=== PATIENT | male | born 1960 | race American Indian/Alaskan Native ===

== ENCOUNTER 2016-08-07 10:05 | Emergency (ER) | payer MEDICARE ==
[2016-08-07 11:48] VITALS: BP 189/72
--- NOTE | 2016-08-07 12:09 | Emergency Department Report ---
HPI - General Chief Complaint: Wound/Laceration Time Seen by Provider: 08/07/16 10:26 - HPI HPI: This is a 56-year-old Afro-L[place] male presents to the emergency department after hemodialysis with complaint of uncontrolled bleeding from his right upper extremity dialysis graft. He says that he believes that they make too large a hole when they gain access as this has happened multiple times in the past. He denies any pain. The patient did complete dialysis today. He denies any chest pain, shortness of breath or any other complaints. His hyperbaric technician is Dr. Hearn. He is a history of diabetes, GERD, hypertension and this end-stage renal disease. ED Past Medical Hx - Past Medical History Hx Hypertension: Yes Hx Diabetes: Yes (DOES NOT TAKE MEDS) Hx GERD: Yes Hx Renal Disease: Yes (ESRD on HD) Hx Arthritis: Yes Hx Asthma: No - Surgical History Past Surgical History?: Yes Additional Surgical History: grafts BUE, bleeding ulcers - Social History Smoking Status: Never Smoker Substance Use Type: None - Medications Home Medications: Home Medications Medication Instructions Recorded Confirmed Last Taken Type Carvedilol 25 mg PO BID 05/06/13 03/18/15 03/17/15 History 25mg Cimetidine 400 mg PO BID 05/06/13 03/18/15 03/17/15 History 400mg Cinacalcet [Sensipar] 30 mg PO Q48HR 05/06/13 03/18/15 03/17/15 History 30mg NIFEdipine [Nifedipine ER] 60 mg PO DAILY 05/06/13 03/18/15 03/17/15 History 60mg Omeprazole 40 mg PO BID 05/06/13 03/18/15 03/17/15 History 40mg Sevelamer Carbonate [Renvela] 2,400 mg PO TID 05/06/13 03/18/15 03/17/15 History 2400mg Terazosin [Hytrin] 5 mg PO DAILY 05/06/13 03/18/15 03/17/15 History 5mg Cyanocobalamin (Vitamin B-12) 2,000 mcg PO DAILY 07/15/13 03/18/15 03/17/15 History [Vitamin B-12] [place] [place] of Systems ROS: Stated complaint: BLEEDING FROM DIALYSIS Other details as noted in HPI Comment: All other systems reviewed and negative Constitutional: denies: chills, fever Eyes: denies: eye pain, eye discharge, vision change ENT: denies: ear pain, throat pain Respiratory: denies: cough, shortness of breath, wheezing Cardiovascular: denies: chest pain, palpitations Gastrointestinal: denies: abdominal pain, nausea, diarrhea Genitourinary: denies: urgency, dysuria Musculoskeletal: denies: back pain, joint swelling, arthralgia Skin: denies: rash, lesions Neurological: denies: headache, weakness, paresthesias Physical Exam - Physical Exam Vital Signs: Vital Signs 08/07/16 08/07/16 08/07/16 10:17 10:32 10:35 Respiratory 18 Rate Blood Pressure 191/77 189/74 O2 Sat by Pulse 98 Oximetry 08/07/16 08/07/16 08/07/16 10:45 11:00 11:15 Respiratory Rate Blood Pressure 183/79 178/69 189/72 O2 Sat by Pulse Oximetry Physical Exam: GENERAL: The patient is well-developed well-nourished. HEENT: Normocephalic. Atraumatic. Extraocular motions are intact. Patient has moist mucous membranes. NECK: Supple. Trachea is midline. CHEST/LUNGS: Clear to auscultation. There is no respiratory distress noted. HEART/CARDIOVASCULAR: Regular. There is no tachycardia. There is no gallop rub or murmur. ABDOMEN: Abdomen is soft, nontender. Patient has normal bowel sounds. There is no abdominal distention. SKIN: There is a patent right upper extremity dialysis graft. When the dressing is removed there is no bleeding at first but then there is some oozing from the distal portion of the graft. NEURO: The patient is awake, alert, and oriented. The patient is cooperative. The patient has no focal neurologic deficits. The patient has normal speech. MUSCULOSKELETAL: There is no tenderness or deformity. There is no limitation range of motion. There is no evidence of acute injury. Radial pulses +2 over 4 bilaterally. Patent right upper extremity dialysis graft with a palpable thrill and audible hum. ED Course Vital Signs 08/07/16 08/07/16 08/07/16 10:17 10:32 10:35 Respiratory 18 Rate Blood Pressure 191/77 189/74 O2 Sat by Pulse 98 Oximetry 08/07/16 08/07/16 08/07/16 10:45 11:00 11:15 Respiratory Rate Blood Pressure 183/79 178/69 189/72 O2 Sat by Pulse Oximetry ED Medical Decision Making - Medical Decision Making 56-year-old male presents after dialysis with bleeding from the right upper extremity graft. At first when the dressings were removed there was no bleeding but within 1 minute it started to have some oozing from the distal portion of the graft. A different pressure dressing was then placed and was kept there for about 1.5 hours. At this point it was rechecked and the dressing was removed and there was no further bleeding and it appears to have clotted over. A small amount of Dermabond was used to provide a another protective coating over the area where the patient had some mild bleeding. Then a nonadhesive dressing was placed over, followed by sterile gauze, followed by [place] bandage. The patient will remain in this dressing until later tonight or early tomorrow and then it will be rechecked by himself at home. If there is any further bleeding he will return to the emergency department. If there is no further bleeding that he will continue with his normal dialysis regimen. I checked the patient again after the dressing and he is neurovascularly intact with good cap refill and distal pulses. Critical Care Time: No Critical care attestation.: If time is entered above; I have spent that time in minutes in the direct care of this critically ill patient, excluding procedure time. ED Disposition Clinical Impression: Bleeding from dialysis shunt Qualifiers: Encounter type: initial encounter Qualified Code(s): T82.838A - Hemorrhage due to vascular prosthetic devices, implants and grafts, initial encounter Disposition: DISCHARGED TO HOME OR SELFCARE Is pt being admited?: No Condition: Stable Additional Instructions: I recommend that you keep your dressing on until at least tonight, if not tomorrow morning, before you recheck it. If there is any further bleeding and it cannot be controlled with pressure, return to the emergency department for further evaluation. If there is no further bleeding, continue with your normal dialysis regiment. Referrals: PRIMARY CARE, [Primary Care Provider] - 3-5 Days Time of Disposition: 12:10
== END 2016-08-07 12:30 | disposition home or self-care (01) ==
LOC: ED 10:05
DX: T82.838A Hemorrhage due to vascular prosthetic devices, implants and grafts, initial encounter (principal); E11.9 Type 2 diabetes mellitus without complications; K21.9 Gastro-esophageal reflux disease without esophagitis; I12.0 Hypertensive chronic kidney disease with stage 5 chronic kidney disease or end stage renal disease; N18.6 End stage renal disease
CPT/HCPCS: 99283

== ENCOUNTER 2016-09-20 15:00 | Inpatient (IN) | payer MEDICARE ==
--- NOTE | 2016-09-20 15:57 | Emergency Department Report ---
ED Altered Mental Status HPI - General Chief Complaint: Altered Mental Status Stated Complaint: AMS Time Seen by Provider: 09/20/16 15:46 Source: EMS Mode of arrival: Stretcher Limitations: Altered Mental Status - History of Present Illness MD Complaint: altered mental status -: days(s) (3) Severity: severe Consistency of Symptoms: getting worse Context: other (end-stage renal disease on dialysis) Associated Symptoms: fever/chills - Related Data Home Medications Medication Instructions Recorded Confirmed Last Taken Carvedilol 25 mg PO BID 05/06/13 03/18/15 03/17/15 25mg Cimetidine 400 mg PO BID 05/06/13 03/18/15 03/17/15 400mg Cinacalcet [Sensipar] 30 mg PO Q48HR 05/06/13 03/18/15 03/17/15 30mg NIFEdipine [Nifedipine ER] 60 mg PO DAILY 05/06/13 03/18/15 03/17/15 60mg Omeprazole 40 mg PO BID 05/06/13 03/18/15 03/17/15 40mg Sevelamer Carbonate [Renvela] 2,400 mg PO TID 05/06/13 03/18/15 03/17/15 2400mg Terazosin [Hytrin] 5 mg PO DAILY 05/06/13 03/18/15 03/17/15 5mg Cyanocobalamin (Vitamin B-12) 2,000 mcg PO DAILY 07/15/13 03/18/15 03/17/15 [Vitamin B-12] 2000mcg Allergies Allergy/AdvReac Type Severity Reaction Status Date / Time shellfish derived Allergy Swelling Verified 11/19/15 11:13 ED Review of Systems ROS: Stated complaint: AMS Other details as noted in HPI Comment: All other systems reviewed and negative Constitutional: chills, fever, malaise Cardiovascular: chest pain Neurological: weakness ED Past Medical Hx - Past Medical History Previous Medical History?: Yes Hx Hypertension: Yes Hx Diabetes: Yes (DOES NOT TAKE MEDS) Hx GERD: Yes Hx Renal Disease: Yes (ESRD on HD) Hx Arthritis: Yes Hx Asthma: No - Surgical History Additional Surgical History: grafts BUE, bleeding ulcers - Social History Smoking Status: Unknown if ever smoked Substance Use Type: None - Medications Home Medications: Home Medications Medication Instructions Recorded Confirmed Last Taken Type Carvedilol 25 mg PO BID 05/06/13 03/18/15 03/17/15 History 25mg Cimetidine 400 mg PO BID 05/06/13 03/18/15 03/17/15 History 400mg Cinacalcet [Sensipar] 30 mg PO Q48HR 05/06/13 03/18/15 03/17/15 History 30mg NIFEdipine [Nifedipine ER] 60 mg PO DAILY 05/06/13 03/18/15 03/17/15 History 60mg Omeprazole 40 mg PO BID 05/06/13 03/18/15 03/17/15 History 40mg Sevelamer Carbonate [Renvela] 2,400 mg PO TID 05/06/13 03/18/15 03/17/15 History 2400mg Terazosin [Hytrin] 5 mg PO DAILY 05/06/13 03/18/15 03/17/15 History 5mg Cyanocobalamin (Vitamin B-12) 2,000 mcg PO DAILY 07/15/13 03/18/15 03/17/15 History [Vitamin B-12] 2000[facility] [place] ED Physical Exam - General Limitations: Altered Mental Status General appearance: alert, lethargic, in distress - Eye Eye exam: Present: normal appearance - ENT ENT exam: Present: normal exam, other (left lower mandibular teeth with abscess) - Neck Neck exam: Present: normal inspection, tenderness - Respiratory Respiratory exam: Present: normal lung sounds bilaterally, respiratory distress - Cardiovascular Cardiovascular Exam: Present: regular rate, normal rhythm - GI/Abdominal GI/Abdominal exam: Present: soft - Extremities Exam Extremities exam: Present: normal inspection - Back Exam Back exam: Present: normal inspection, full ROM - Neurological Exam Neurological exam: Present: other (lethargic) ED Course Vital Signs 09/20/16 09/20/16 09/20/16 15:21 15:30 15:41 Temperature 100.8 F H Pulse Rate 87 91 H Respiratory 16 28 H Rate Blood Pressure 195/93 166/79 Blood Pressure 195/93 [Left] O2 Sat by Pulse 90 95 97 Oximetry 09/20/16 09/20/16 09/20/16 15:50 15:51 16:00 Temperature Pulse Rate 96 H 93 H Respiratory 16 22 26 H Rate Blood Pressure 175/66 180/74 Blood Pressure [Left] O2 Sat by Pulse 90 99 97 Oximetry 09/20/16 09/20/16 09/20/16 16:11 16:21 16:35 Temperature 101.8 F H Pulse Rate 83 85 Respiratory 23 26 H Rate Blood Pressure 180/74 180/74 Blood Pressure [Left] O2 Sat by Pulse 97 100 Oximetry 09/20/16 17:00 Temperature Pulse Rate Respiratory 22 Rate Blood Pressure Blood Pressure [Left] O2 Sat by Pulse Oximetry - Lab Data Result diagrams: 09/20/16 16:11 09/20/16 16:11 Lab Results 09/20/16 09/20/16 09/20/16 Range/Units 16:11 16:11 16:11 WBC 14.7 H (4.5-11.0) K/mm3 RBC 3.82 (3.65-5.03) M/mm3 Hgb 11.3 L (11.8-15.2) gm/dl Hct 36.0 (35.5-45.6) % MCV 95 H (84-94) fl MCH 30 (28-32) pg MCHC 31 L (32-34) % RDW 17.6 H (13.2-15.2) % Plt Count 108 L (140-440) K/mm3 Lymph % (Auto) 3.1 L (13.4-35.0) % [place] % (Auto) 7.6 H (0.0-7.3) % Eos % (Auto) 0.1 (0.0-4.3) % Baso % (Auto) 0.3 (0.0-1.8) % Lymph # 0.5 L (1.2-5.4) K/mm3 [place] # 1.1 H (0.0-0.8) K/mm3 Eos # 0.0 (0.0-0.4) K/mm3 Baso # 0.0 (0.0-0.1) K/mm3 Seg Neutrophils % 88.9 H (40.0-70.0) % Seg Neutrophils # 13.1 H (1.8-7.7) K/mm3 PT 15.4 H (12.2-14.9) Sec. INR 1.23 H (0.87-1.13) APTT 34.1 (24.2-36.6) Sec. Sodium (137-145) mmol/L Potassium (3.6-5.0) mmol/L Chloride (98-107) mmol/L Carbon Dioxide (22-30) mmol/L Anion Gap mmol/L BUN (9-20) mg/dL Creatinine (0.8-1.5) mg/dL Estimated GFR ml/min BUN/Creatinine Ratio % Glucose (75-100) mg/dL Lactic Acid 1.50 (0.7-2.0) mmol/L Calcium (8.4-10.2) mg/dL Total Bilirubin (0.1-1.2) mg/dL AST (5-40) units/L ALT (7-56) units/L Alkaline Phosphatase (35-129) units/L Total Creatine Kinase (55-170) units/L Troponin T (0.00-0.029) ng/mL Total Protein (6.3-8.2) g/dL Albumin (3.9-5) g/dL Albumin/Globulin Ratio % Triglycerides (2-149) mg/dL Cholesterol (50-199) mg/dL LDL Cholesterol Direct (50-130) mg/dL HDL Cholesterol (40-59) mg/dL Cholesterol/HDL Ratio % 07/13/17 Range/Units 16:11 WBC (4.5-11.0) K/mm3 RBC (3.65-5.03) M/mm3 Hgb (11.8-15.2) gm/dl Hct (35.5-45.6) % MCV (84-94) fl MCH (28-32) pg MCHC (32-34) % RDW (13.2-15.2) % Plt Count (140-440) K/mm3 Lymph % (Auto) (13.4-35.0) % [place] % (Auto) (0.0-7.3) % Eos % (Auto) (0.0-4.3) % Baso % (Auto) (0.0-1.8) % Lymph # (1.2-5.4) K/mm3 [place] # (0.0-0.8) K/mm3 Eos # (0.0-0.4) K/mm3 Baso # (0.0-0.1) K/mm3 Seg Neutrophils % (40.0-70.0) % Seg Neutrophils # (1.8-7.7) K/mm3 PT (12.2-14.9) Sec. INR (0.87-1.13) APTT (24.2-36.6) Sec. Sodium 138 (137-145) mmol/L Potassium 3.9 (3.6-5.0) mmol/L Chloride 94.4 L (98-107) mmol/L Carbon Dioxide 25 (22-30) mmol/L Anion Gap 23 mmol/L BUN 23 H (9-20) mg/dL Creatinine 5.7 H (0.8-1.5) mg/dL Estimated GFR 12 ml/min BUN/Creatinine Ratio 4.03 % Glucose 91 (75-100) mg/dL Lactic Acid (0.7-2.0) mmol/L Calcium 9.1 (8.4-10.2) mg/dL Total Bilirubin 1.70 H (0.1-1.2) mg/dL AST 17 (5-40) units/L ALT 11 (7-56) units/L Alkaline Phosphatase 60 (35-129) units/L Total Creatine Kinase 240 H (55-170) units/L Troponin T 0.659 H* (0.00-0.029) ng/mL Total Protein 8.0 (6.3-8.2) g/dL Albumin 3.6 L (3.9-5) g/dL Albumin/Globulin Ratio 0.8 % Triglycerides 129 (2-149) mg/dL Cholesterol 113 (50-199) mg/dL LDL Cholesterol Direct 71 (50-130) mg/dL HDL Cholesterol 17 L (40-59) mg/dL Cholesterol/HDL Ratio 6.64 % Critical care attestation.: If time is entered above; I have spent that time in minutes in the direct care of this critically ill patient, excluding procedure time. ED Disposition Clinical Impression: Sepsis Disposition: OP ADMIT IP TO THIS HOSP Is pt being admited?: Yes Does the pt Need Aspirin: No Condition: Critical Referrals: PRIMARY CARE, [Primary Care Provider] - 3-5 Days
[2016-09-20 16:37] LABS: Basophils % (Auto) 0.3 % (0.0-1.8); Eosinophils % (Auto) 0.1 % (0.0-4.3); Hemoglobin 11.3 gm/dl (11.8-15.2); Mean Corpuscular HGB Conc 31 % (32-34); Mean Corpuscular Hemoglobin 30 pg (28-32); Mean Corpuscular Volume 95 fl (84-94); Platelet Count 108 K/mm3 (140-440); Red Blood Count 3.82 M/mm3 (3.65-5.03); Red Cell Distribution Width 17.6 % (13.2-15.2); White Blood Count 14.7 K/mm3 (4.5-11.0)
[2016-09-20 16:49] LABS: Partial Thromboplastin Time 34.1 Sec. (24.2-36.6)
[2016-09-20] MEDS ORDERED: TYLENOL PO ONE (16:50)
[2016-09-20 16:52] LABS: INR 1.23 (0.87-1.13)
[2016-09-20 16:54] LABS: Albumin 3.6 g/dL (3.9-5); Albumin/Globulin Ratio 0.8 %; BUN/Creatinine Ratio 4.03; Bilirubin,Total 1.7 mg/dL (0.1-1.2); Calcium 9.1 mg/dL (8.4-10.2); Chloride 94.4 mmol/L (98-107); Potassium 3.9 mmol/L (3.6-5.0)
--- NOTE | 2016-09-20 16:55 | Cat Scan Report ---
FINAL REPORT EXAM: CT HEAD/BRAIN WO CON HISTORY: Altered Mental Status TECHNIQUE: CT head without contrast PRIORS: None. FINDINGS: No acute intra-axial or extra-axial hemorrhage is identified. There is no evidence of midline shift or mass effect. There is generalized prominence of ventricles and sulci.. Orr-white matter differentiation is intact. No acute parenchymal abnormalities seen. There are patchy and confluent hypodensities within the supratentorial white matter. Bony calvarium is grossly intact. Visualized portions of the mastoids and paranasal sinuses are unremarkable. IMPRESSION: Chronic small vessel white matter ischemic change Moderate parenchymal volume loss
[2016-09-20] MEDS ORDERED: UNASYN/NS 3 GM/100 ML 3 GM/100 ML BAG IV ONE (18:02)
--- NOTE | 2016-09-20 21:21 | History and Physical Report ---
History of Present Illness Date of examination: 09/20/16 Date of admission: 09/20/16 18:21 Chief complaint: Altered sensorium for 1 day. History of present illness: CURYUNG:56 y/o AAF with ESRD recent dental infection has been confused and Lethargic.Low grade fever present.Lethargic.Rt Dental pain present and Slight swelling of Jaw present.Compliant with HD - Past Medical History Previous Medical History?: Yes Hx Hypertension: Yes Hx Diabetes: Yes (DOES NOT TAKE MEDS) Hx GERD: Yes Hx Renal Disease: Yes (ESRD on HD) Hx Arthritis: Yes Hx Asthma: No - Surgical History Additional Surgical History: grafts BUE, bleeding ulcers - Social History Smoking Status: Unknown if ever smoked Substance Use Type: None - Medications Home Medications: Home Medications Medication Instructions Recorded Confirmed Last Taken Type Carvedilol 25 mg PO BID 05/06/13 03/18/15 03/17/15 History 25mg Cimetidine 400 mg PO BID 05/06/13 03/18/15 03/17/15 History 400mg Cinacalcet [Sensipar] 30 mg PO Q48HR 05/06/13 03/18/15 03/17/15 History 30mg NIFEdipine [Nifedipine ER] 60 mg PO DAILY 05/06/13 03/18/15 03/17/15 History 60mg Omeprazole 40 mg PO BID 05/06/13 03/18/15 03/17/15 History 40mg Sevelamer Carbonate [Renvela] 2,400 mg PO TID 05/06/13 03/18/15 03/17/15 History 2400mg Terazosin [Hytrin] 5 mg PO DAILY 05/06/13 03/18/15 03/17/15 History 5mg Cyanocobalamin (Vitamin B-12) 2,000 mcg PO DAILY 07/15/13 03/18/15 03/17/15 History [Vitamin B-12] 2000mcg Medications and Allergies Allergies Allergy/AdvReac Type Severity Reaction Status Date / Time shellfish derived Allergy Swelling Verified 11/19/15 11:13 Home Medications Medication Instructions Recorded Confirmed Last Taken Type Carvedilol 25 mg PO BID 05/06/13 09/20/16 03/17/15 History 25mg Cinacalcet [Sensipar] 30 mg PO QDAY 05/06/13 09/20/16 03/17/15 History 30mg NIFEdipine [Nifedipine ER] 60 mg PO BID 05/06/13 09/20/16 03/17/15 History 60mg Omeprazole 40 mg PO QDAY 05/06/13 09/20/16 03/17/15 History 40mg Cyanocobalamin (Vitamin B-12) 2,000 mcg PO BID 07/15/13 09/20/16 03/17/15 History [Vitamin B-12] 2000[facility] [place] Review of Systems All systems: negative Exam - Constitutional Vitals: Temp Pulse Resp BP Pulse Ox 98.3 F 77 20 157/73 99 09/20/16 20:50 09/20/16 20:50 09/20/16 20:50 09/20/16 20:50 09/20/16 20:50 General appearance: Present: no acute distress, well-nourished - EENT Eyes: Present: PERRL ENT: hearing intact, clear oral mucosa - Neck Neck: Present: supple, normal ROM - Respiratory Respiratory effort: normal Respiratory: bilateral: CTA - Cardiovascular Heart Sounds: Present: S1 & S2. Absent: rub, click - Extremities Extremities: pulses symmetrical, No edema Peripheral Pulses: within normal limits - Abdominal General gastrointestinal: Present: soft, non-tender, non-distended, normal bowel sounds Male genitourinary: Present: normal - Integumentary Integumentary: Present: clear, warm, dry - Musculoskeletal Musculoskeletal: gait normal, strength equal bilaterally - Psychiatric Psychiatric: appropriate mood/affect, intact judgment & insight - Neurologic Neurologic: CNII-XII intact, moves all extremities Results - Labs CBC & Chem 7: 09/20/16 16:11 09/20/16 16:11 Labs: Laboratory Last Values WBC 14.7 K/mm3 (4.5-11.0) H 09/20/16 16:11 RBC 3.82 M/mm3 (3.65-5.03) 09/20/16 16:11 Hgb 11.3 gm/dl (11.8-15.2) L 09/20/16 16:11 Hct 36.0 % (35.5-45.6) 09/20/16 16:11 MCV 95 fl (84-94) H 09/20/16 16:11 MCH 30 pg (28-32) 09/20/16 16:11 MCHC 31 % (32-34) L 09/20/16 16:11 RDW 17.6 % (13.2-15.2) H 09/20/16 16:11 Plt Count 108 K/mm3 (140-440) L 09/20/16 16:11 Lymph % (Auto) 3.1 % (13.4-35.0) L 09/20/16 16:11 [place] % (Auto) 7.6 % (0.0-7.3) H 09/20/16 16:11 Eos % (Auto) 0.1 % (0.0-4.3) 09/20/16 16:11 Baso % (Auto) 0.3 % (0.0-1.8) 09/20/16 16:11 Lymph # 0.5 K/mm3 (1.2-5.4) L 09/20/16 16:11 [place] # 1.1 K/mm3 (0.0-0.8) H 09/20/16 16:11 Eos # 0.0 K/mm3 (0.0-0.4) 09/20/16 16:11 Baso # 0.0 K/mm3 (0.0-0.1) 09/20/16 16:11 Seg Neutrophils % 88.9 % (40.0-70.0) H 09/20/16 16:11 Seg Neutrophils # 13.1 K/mm3 (1.8-7.7) H 09/20/16 16:11 PT 15.4 Sec. (12.2-14.9) H 09/20/16 16:11 INR 1.23 (0.87-1.13) H 09/20/16 16:11 APTT 34.1 Sec. (24.2-36.6) 09/20/16 16:11 Sodium 138 mmol/L (137-145) 09/20/16 16:11 Potassium 3.9 mmol/L (3.6-5.0) 09/20/16 16:11 Chloride 94.4 mmol/L (98-107) L 09/20/16 16:11 Carbon Dioxide 25 mmol/L (22-30) 09/20/16 16:11 Anion Gap 23 mmol/L 09/20/16 16:11 BUN 23 mg/dL (9-20) H 09/20/16 16:11 Creatinine 5.7 mg/dL (0.8-1.5) H 09/20/16 16:11 Estimated GFR 12 ml/min 09/20/16 16:11 BUN/Creatinine Ratio 4.03 % 09/20/16 16:11 Glucose 91 mg/dL (75-100) 09/20/16 16:11 Lactic Acid 1.50 mmol/L (0.7-2.0) 09/20/16 16:11 Calcium 9.1 mg/dL (8.4-10.2) 09/20/16 16:11 Total Bilirubin 1.70 mg/dL (0.1-1.2) H 09/20/16 16:11 AST 17 units/L (5-40) 09/20/16 16:11 ALT 11 units/L (7-56) 09/20/16 16:11 Alkaline Phosphatase 60 units/L (35-129) 09/20/16 16:11 Total Creatine Kinase 240 units/L (55-170) H 09/20/16 16:11 Troponin T 0.659 ng/mL (0.00-0.029) H* 09/20/16 16:11 Total Protein 8.0 g/dL (6.3-8.2) 09/20/16 16:11 Albumin 3.6 g/dL (3.9-5) L 09/20/16 16:11 Albumin/Globulin Ratio 0.8 % 09/20/16 16:11 Triglycerides 129 mg/dL (2-149) 09/20/16 16:11 Cholesterol 113 mg/dL (50-199) 09/20/16 16:11 LDL Cholesterol Direct 71 mg/dL (50-130) 09/20/16 16:11 HDL Cholesterol 17 mg/dL (40-59) L 09/20/16 16:11 Cholesterol/HDL Ratio 6.64 % 09/20/16 16:11 - Imaging and Cardiology EKG: report reviewed CT Scan - head: report reviewed Assessment and Plan Advance Directives: Yes (Full code) VTE prophylaxis?: Chemical Plan of care discussed with patient/family: Yes - Patient Problems (1) Sepsis Current Visit: Yes Status: Acute Qualifiers: Sepsis type: sepsis due to unspecified organism Qualified Code(s): A41.9 - Sepsis, unspecified organism Plan to address problem: Sec to Dental infection.Patient started on IV Levaquin to cover Gram positives and Gm Negatives.Patient should improve with IV abx and follw up with dentist after discarge. (2) ESRD (end stage renal disease) on dialysis Current Visit: Yes Status: Chronic Plan to address problem: Nephrology consulted (3) HTN (hypertension) Current Visit: Yes Status: Chronic Qualifiers: Hypertension type: essential hypertension Qualified Code(s): I10 - Essential (primary) hypertension Plan to address problem: cont antihypertensives (4) BPH (benign prostatic hyperplasia) Current Visit: Yes Status: Chronic Qualifiers: Lower urinary tract symptom presence: symptoms present Lower urinary tract symptom detail: L Plan to address problem: On Hytrin (5) GERD (gastroesophageal reflux disease) Current Visit: Yes Status: Chronic Qualifiers: Esophagitis presence: E Plan to address problem: on PpI's (6) DVT prophylaxis Current Visit: Yes Status: Acute Plan to address problem: on Heparin
[2016-09-20] MEDS ORDERED: DILAUDID IV PRN (21:30)
[2016-09-20] MEDS ORDERED: LEVAQUIN 500MG/100ML 500 MG/100 ML BAG IV SCH (22:00)
[2016-09-20] MEDS: PROCARDIA XL PO SCH (22:58)
[2016-09-20] MEDS: COREG PO SCH (22:59)
[2016-09-20] MEDS: HEPARIN SUB-Q SCH (22:59)
[2016-09-21] MEDS ORDERED: APRESOLINE IV ONE (00:55)
[2016-09-21] MEDS ORDERED: TYLENOL PO PRN (00:55)
--- NOTE | 2016-09-21 07:23 | XRay Report ---
Single view chest: History: Mental status. Findings: Mild cardiomegaly. Trachea is midline. No consolidation, pneumothorax or pleural effusion. Impression: Cardiomegaly. No definite acute changes.
[2016-09-21] MEDS ORDERED: NON-FORMULARY (Omeprazole [Omeprazole] 40 MG) PO SCH (10:00)
--- NOTE | 2016-09-21 12:14 | Admit Criteria Form ---
Admission Criteria Documentation: SEPSIS and OTHER FEBRILE ILLNESS, W/O FOCAL INFECTION Clinical Indications for Admission to Inpatient Care ( Place 'X' for any and all applicable criteria): Admission is indicated for ANY ONE of the following (1)(2)(3)(4): [ ] I. Bacteremia [ ]II. Suspected or identified specific infection requiring hospitalization (eg, meningitis, endocarditis) [ ]III. Hemodynamic instability [ X]IV. Altered mental status [ ]V. Failure or unavailability of outpatient antimicrobial treatment [ ]. Hypoxemia [ ]VII. Seizures [ ]VIII. High-risk febrile neutropenia [ ]IX. Need for parenteral antibiotic in patient who is likely to abuse vascular access device (eg, injection drug user) [A](7) [ ]X. Temperature greater than 104.9 degrees F (40.5 degrees C) (oral) [ ]XI. Inpatient admission required rather than observation care because of ANY ONE of the following: [ ]1) Specific infection identified that is too severe for outpatient treatment or observation care trial [ ]2) Metabolic disorder (eg, hypoglycemia, hyperglycemia, metabolic acidosis) that is severe or persistent [ ]3) Temperature greater than 103.1 degrees F (39.5 degrees C) ( oral) that is not responsive to observation care treatment [ ]4) IV fluid to replace significant ongoing (eg, for over 24 hours) losses (> 3 L/m2 per day) [ ]5) Supplemental oxygen or respiratory treatments for over 24 hours that is performable only in acute inpatient setting [ ]6) Parenteral nutrition regimen need that must be implemented on inpatient basis [ ]7) Strict or protective (eg, laminar flow) isolation [ ]8) Other condition, treatment or monitoring requiring inpatient admission Extended stay beyond goal length of stay may be needed for(1)(3) [ ]a) Sepsis or septic shock(22) [ ]b) Positive blood cultures [ ]c) Insufficient oral intake [ ]d) High-risk febrile neutropenia(29)(30) [ ]e) Continued fever and clinical instability [ ]f) Clinically active comorbid illness (e.g,heart failure, renal failure , diabetes) The original [facility] content created by Mica Beasley has been revised. The portions of the content which have been revised are identified through the use of italic text or in bold, and Mica Beasley has neither reviewed nor approved the modified material. All other unmodified content is copyright [facility]. Please see references footnoted in the original [facility] edition 2016 Admission Criteria Met: Yes
[2016-09-21] MEDS ORDERED: PROCRIT IV PRN (12:38)
[2016-09-21] MEDS ORDERED: NACL 0.9% 100 ML IV PRN (12:38)
--- NOTE | 2016-09-21 12:38 | Consultation ---
History of Present Illness - Reason for Consult Consult date: 09/21/16 end stage renal disease Requesting physician: ONOFRE WESTON - History of Present Illness 56 y/o AAF with ESRD recent dental infection has been confused and Lethargic.Low grade fever present.Lethargic.Rt Dental pain present and Slight swelling of Jaw present.Compliant with HD Past History Past Medical History: anemia, dialysis, ESRD, hypertension, renal failure Past Surgical History: Other (dialysis access placement) Social history: denies: prescription drug abuse, IV drug use Family history: hypertension Medications and Allergies Allergies Allergy/AdvReac Type Severity Reaction Status Date / Time shellfish derived Allergy Swelling Verified 11/19/15 11:13 Home Medications Medication Instructions Recorded Confirmed Last Taken Type Carvedilol 25 mg PO BID 05/06/13 09/20/16 03/17/15 History 25mg Cinacalcet [Sensipar] 30 mg PO QDAY 05/06/13 09/20/16 03/17/15 History 30mg NIFEdipine [Nifedipine ER] 60 mg PO BID 05/06/13 09/20/16 03/17/15 History 60mg Omeprazole 40 mg PO QDAY 05/06/13 09/20/16 03/17/15 History 40mg Cyanocobalamin (Vitamin B-12) 2,000 mcg PO BID 07/15/13 09/20/16 03/17/15 History [Vitamin B-12] 2000mcg Active Meds: Active Medications Acetaminophen (Tylenol) 650 mg PO Q4H PRN PRN Reason: Pain, Mild (1-3) Last Admin: 09/21/16 01:10 Dose: 650 mg Carvedilol (Coreg) 25 mg PO BID [facility] Last Admin: 09/20/16 22:59 Dose: 25 mg Cinacalcet (Sensipar) 30 mg PO QDAY [facility] Heparin Sodium (Porcine) (Heparin) 5,000 unit SUB-Q Q12HR [facility] Last Admin: 09/20/16 22:59 Dose: 5,000 unit Hydromorphone HCl (Dilaudid) 0.5 mg IV Q3H PRN PRN Reason: Pain , Severe (7-10) Levofloxacin/Dextrose (Levaquin 500mg/100ml) 500 mg in 100 mls @ 100 mls/hr IV Q48H [facility] PRN Reason: Protocol Nifedipine (Procardia Xl) 60 mg PO BID [facility] Last Admin: 09/20/16 22:58 Dose: 60 mg Pantoprazole Sodium (Protonix) 40 mg PO DAILY [facility] Review of Systems Constitutional: chills, sweats, fatigue, weakness, malaise, lethargy Ears, nose, mouth and throat: dental pain, sore throat, odynophagia Endocrine: fatigue Exam - Vital Signs Vital signs: Vital Signs Temp Pulse Resp BP Pulse Ox 100.7 F H 87 16 195/93 90 09/20/16 15:21 09/20/16 15:21 09/20/16 15:21 09/20/16 15:21 09/20/16 15:21 - Physical Exam Narrative exam: General appearance: Present: no acute distress, well-nourished - EENT Eyes: Present: PERRL ENT: hearing intact, clear oral mucosa - Neck Neck: Present: supple, normal ROM - Respiratory Respiratory effort: normal Respiratory: bilateral: CTA - Cardiovascular Heart Sounds: Present: S1 & S2. Absent: rub, click - Extremities Extremities: pulses symmetrical, No edema Peripheral Pulses: within normal limits - Abdominal General gastrointestinal: Present: soft, non-tender, non-distended, normal bowel sounds Male genitourinary: Present: normal - Integumentary Integumentary: Present: clear, warm, dry - Musculoskeletal Musculoskeletal: gait normal, strength equal bilaterally - Psychiatric Psychiatric: appropriate mood/affect, intact judgment & insight - Neurologic Neurologic: CNII-XII intact, moves all extremities Results - Lab Results 09/20/16 16:11 09/20/16 16:11 Most recent lab results Calcium 9.1 mg/dL (8.4-10.2) 09/20/16 16:11 Assessment and Plan Impression: * ESRD * Dental pain * fever/chills * HTN Plan * HD q TTHSAT * iv abx per primary team * strict i/os * dialysis diet * uf as tolerated with HD * epogen per protocol
[2016-09-21] MEDS: PROTONIX PO SCH (14:10)
[2016-09-21] MEDS: HEPARIN SUB-Q SCH ×2 (14:10→22:15)
[2016-09-21] MEDS: SENSIPAR PO SCH (14:10)
[2016-09-21] MEDS: PROCARDIA XL PO SCH ×2 (14:10→22:16)
[2016-09-21] MEDS: COREG PO SCH ×2 (14:10→22:16)
--- NOTE | 2016-09-21 17:54 | Progress Note ---
Assessment and Plan Assessment and plan: -- febrile illness Secondary to dental infection, antibiotics, antibiotics, supportive care --Dental infection; pain medications and antibiotics Patient advised to see dentist upon discharge --Leukocytosis secondary to sepsis due to dental infection Antibiotics, follow cultures --End-stage renal disease on hemodialysis Nephrology following --Hypertension moderate control; resume home antihypertensives When necessary medications --DVT prophylaxis; heparin --DC planning. Case management Plan of care discussed with the patient his nurse and the case management History Interval history: Patient seen and evaluated medical records reviewed Admitted with fever and dental infection, complains of some pain Alert awake oriented 3 not in acute distress Hospitalist Physical - Constitutional Vitals: Temp Pulse Resp BP Pulse Ox 98.8 F 62 20 108/59 100 09/21/16 14:17 09/21/16 15:54 09/21/16 14:17 09/21/16 14:17 09/21/16 08:36 General appearance: Present: no acute distress, well-nourished - EENT Eyes: Present: PERRL, EOM intact - Neck Neck: Present: supple, normal ROM - Respiratory Respiratory effort: normal Respiratory: negative: rales, rhonchi, wheezing - Cardiovascular Rhythm: regular Heart Sounds: Present: S1 & S2 - Extremities Extremities: no ischemia, No edema - Abdominal General gastrointestinal: soft, non-tender, non-distended, normal bowel sounds - Integumentary Integumentary: Present: clear, warm - Psychiatric Psychiatric: appropriate mood/affect, cooperative - Neurologic Neurologic: CNII-XII intact, moves all extremities Results - Labs CBC & Chem 7: 09/20/16 16:11 09/20/16 16:11 Labs: Laboratory Last Values WBC 14.7 K/mm3 (4.5-11.0) H 09/20/16 16:11 RBC 3.82 M/mm3 (3.65-5.03) 09/20/16 16:11 Hgb 11.3 gm/dl (11.8-15.2) L 09/20/16 16:11 Hct 36.0 % (35.5-45.6) 09/20/16 16:11 MCV 95 fl (84-94) H 09/20/16 16:11 MCH 30 pg (28-32) 09/20/16 16:11 MCHC 31 % (32-34) L 09/20/16 16:11 RDW 17.6 % (13.2-15.2) H 09/20/16 16:11 Plt Count 108 K/mm3 (140-440) L 09/20/16 16:11 Lymph % (Auto) 3.1 % (13.4-35.0) L 09/20/16 16:11 Page % (Auto) 7.6 % (0.0-7.3) H 09/20/16 16:11 Eos % (Auto) 0.1 % (0.0-4.3) 09/20/16 16:11 Baso % (Auto) 0.3 % (0.0-1.8) 09/20/16 16:11 Lymph # 0.5 K/mm3 (1.2-5.4) L 09/20/16 16:11 Page # 1.1 K/mm3 (0.0-0.8) H 09/20/16 16:11 Eos # 0.0 K/mm3 (0.0-0.4) 09/20/16 16:11 Baso # 0.0 K/mm3 (0.0-0.1) 09/20/16 16:11 Seg Neutrophils % 88.9 % (40.0-70.0) H 09/20/16 16:11 Seg Neutrophils # 13.1 K/mm3 (1.8-7.7) H 09/20/16 16:11 PT 15.4 Sec. (12.2-14.9) H 09/20/16 16:11 INR 1.23 (0.87-1.13) H 09/20/16 16:11 APTT 34.1 Sec. (24.2-36.6) 09/20/16 16:11 Sodium 138 mmol/L (137-145) 09/20/16 16:11 Potassium 3.9 mmol/L (3.6-5.0) 09/20/16 16:11 Chloride 94.4 mmol/L (98-107) L 09/20/16 16:11 Carbon Dioxide 25 mmol/L (22-30) 09/20/16 16:11 Anion Gap 23 mmol/L 09/20/16 16:11 BUN 23 mg/dL (9-20) H 09/20/16 16:11 Creatinine 5.7 mg/dL (0.8-1.5) H 09/20/16 16:11 Estimated GFR 12 ml/min 09/20/16 16:11 BUN/Creatinine Ratio 4.03 % 09/20/16 16:11 Glucose 91 mg/dL (75-100) 09/20/16 16:11 POC Glucose 138 (70-105) H 09/21/16 12:37 Lactic Acid 1.50 mmol/L (0.7-2.0) 09/20/16 16:11 Calcium 9.1 mg/dL (8.4-10.2) 09/20/16 16:11 Total Bilirubin 1.70 mg/dL (0.1-1.2) H 09/20/16 16:11 AST 17 units/L (5-40) 09/20/16 16:11 ALT 11 units/L (7-56) 09/20/16 16:11 Alkaline Phosphatase 60 units/L (35-129) 09/20/16 16:11 Total Creatine Kinase 240 units/L (55-170) H 09/20/16 16:11 Troponin T 0.659 ng/mL (0.00-0.029) H* 09/20/16 16:11 Total Protein 8.0 g/dL (6.3-8.2) 09/20/16 16:11 Albumin 3.6 g/dL (3.9-5) L 09/20/16 16:11 Albumin/Globulin Ratio 0.8 % 09/20/16 16:11 Triglycerides 129 mg/dL (2-149) 09/20/16 16:11 Cholesterol 113 mg/dL (50-199) 09/20/16 16:11 LDL Cholesterol Direct 71 mg/dL (50-130) 09/20/16 16:11 HDL Cholesterol 17 mg/dL (40-59) L 09/20/16 16:11 Cholesterol/HDL Ratio 6.64 % 09/20/16 16:11
[2016-09-22] MEDS: SENSIPAR PO SCH ×3 (10:42→17:01)
[2016-09-22] MEDS: HEPARIN SUB-Q SCH ×4 (10:43→22:47)
[2016-09-22] MEDS: COREG PO SCH ×4 (10:44→22:47)
[2016-09-22] MEDS: PROTONIX PO SCH ×3 (10:45→17:02)
[2016-09-22] MEDS: PROCARDIA XL PO SCH ×4 (10:45→22:47)
--- NOTE | 2016-09-22 10:46 | Progress Note ---
Assessment and Plan Impression: * ESRD * Dental pain * fever/chills * HTN Plan * HD q TTHSAT * iv abx per primary team * strict i/os * dialysis diet * uf as tolerated with HD * epogen per protocol Subjective Date of service: 09/22/16 Principal diagnosis: esrd Interval history: resting well in bed today Objective - Exam Narrative Exam: General appearance: Present: no acute distress, well-nourished - EENT Eyes: Present: PERRL ENT: hearing intact, clear oral mucosa - Neck Neck: Present: supple, normal ROM - Respiratory Respiratory effort: normal Respiratory: bilateral: CTA - Cardiovascular Heart Sounds: Present: S1 & S2. Absent: rub, click - Extremities Extremities: pulses symmetrical, No edema Peripheral Pulses: within normal limits - Abdominal General gastrointestinal: Present: soft, non-tender, non-distended, normal bowel sounds Male genitourinary: Present: normal - Integumentary Integumentary: Present: clear, warm, dry - Musculoskeletal Musculoskeletal: gait normal, strength equal bilaterally - Psychiatric Psychiatric: appropriate mood/affect, intact judgment & insight - Neurologic Neurologic: CNII-XII intact, moves all extremities - Vital Signs Vital signs: Vital Signs - 12hr 09/22/16 09/22/16 09/22/16 00:26 04:00 05:22 Temperature 98.4 F 98.8 F Pulse Rate 70 Pulse Rate [ 68 75 Left] Respiratory 20 20 Rate Blood Pressure 119/57 127/62 [Left Arm] O2 Sat by Pulse 99 100 Oximetry 09/22/16 07:44 Temperature 98.2 F Pulse Rate Pulse Rate [ 70 Left] Respiratory 20 Rate Blood Pressure 132/61 [Left Arm] O2 Sat by Pulse 96 Oximetry - Lab 09/20/16 16:11 09/20/16 16:11 Most recent lab results Calcium 9.1 mg/dL (8.4-10.2) 09/20/16 16:11
[2016-09-22 11:56] LABS: Basophils % (Auto) 0.3 % (0.0-1.8); Eosinophils % (Auto) 0.9 % (0.0-4.3); Hematocrit 32.5 % (35.5-45.6); Hemoglobin 10.5 gm/dl (11.8-15.2); Mean Corpuscular HGB Conc 32 % (32-34); Mean Corpuscular Hemoglobin 30 pg (28-32); Mean Corpuscular Volume 93 fl (84-94); Platelet Count 150 K/mm3 (140-440); Red Blood Count 3.48 M/mm3 (3.65-5.03); Red Cell Distribution Width 17.5 % (13.2-15.2)
[2016-09-22 12:47] LABS: BUN/Creatinine Ratio 5.26; Blood Urea Nitrogen 50 mg/dL (9-20); Calcium 8.8 mg/dL (8.4-10.2); Chloride 92.7 mmol/L (98-107); Glucose 97 mg/dL (75-100); Sodium 133 mmol/L (137-145)
[2016-09-22 12:53] LABS: Anion Gap TNR mmol/L; Carbon Dioxide TNR mmol/L (22-30); Potassium TNR mmol/L (3.6-5.0)
[2016-09-22] MEDS ORDERED: NACL 0.9 (PRIMING MACHINE ONLY DIALYSIS) MC ONE (13:33)
--- NOTE | 2016-09-22 18:00 | Progress Note ---
Assessment and Plan Assessment and plan: --End-stage renal disease on hemodialysis Nephrology following her dialysis per schedule -- febrile illness, resolve Secondary to dental infection, antibiotics, antibiotics, supportive care --Dental infection; pain medications and antibiotics Patient advised to see dentist upon discharge --Leukocytosis secondary to sepsis due to dental infection Antibiotics, follow cultures --Hypertension moderate control; resume home antihypertensives When necessary medications --DVT prophylaxis; heparin --DC planning. Case management Continue current management Patient needs to see his dentist as outpatient upon discharge Possible discharge in 1-2 days if stable History Interval history: Patient seen and evaluated medical records reviewed No new events reported by the nursing staff Patient feels better, dental pain slightly improved Alert awake oriented 3 not in acute distress Hospitalist Physical - Constitutional Vitals: Temp Pulse Resp BP Pulse Ox 98.2 F 85 18 155/76 97 09/22/16 11:30 09/22/16 17:03 09/22/16 11:30 09/22/16 17:03 09/22/16 10:00 General appearance: Present: no acute distress, well-nourished - EENT Eyes: Present: PERRL, EOM intact - Neck Neck: Present: supple, normal ROM - Respiratory Respiratory effort: normal Respiratory: bilateral: diminished, negative: rales, rhonchi, wheezing - Cardiovascular Rhythm: regular Heart Sounds: Present: S1 & S2 - Extremities Extremities: no ischemia, No edema - Abdominal General gastrointestinal: soft, non-tender, non-distended, normal bowel sounds - Integumentary Integumentary: Present: clear, warm - Psychiatric Psychiatric: appropriate mood/affect, cooperative - Neurologic Neurologic: CNII-XII intact, moves all extremities Results - Labs CBC & Chem 7: 09/22/16 11:35 09/22/16 09:58 Labs: Laboratory Last Values WBC 15.0 K/mm3 (4.5-11.0) H 09/22/16 11:35 RBC 3.48 M/mm3 (3.65-5.03) L 09/22/16 11:35 Hgb 10.5 gm/dl (11.8-15.2) L 09/22/16 11:35 Hct 32.5 % (35.5-45.6) L 09/22/16 11:35 MCV 93 fl (84-94) 09/22/16 11:35 MCH 30 pg (28-32) 09/22/16 11:35 MCHC 32 % (32-34) 09/22/16 11:35 RDW 17.5 % (13.2-15.2) H 09/22/16 11:35 Plt Count 150 K/mm3 (140-440) 09/22/16 11:35 Lymph % (Auto) 2.8 % (13.4-35.0) L 09/22/16 11:35 [place] % (Auto) 8.2 % (0.0-7.3) H 09/22/16 11:35 Eos % (Auto) 0.9 % (0.0-4.3) 09/22/16 11:35 Baso % (Auto) 0.3 % (0.0-1.8) 09/22/16 11:35 Lymph # 0.4 K/mm3 (1.2-5.4) L 09/22/16 11:35 [place] # 1.2 K/mm3 (0.0-0.8) H 09/22/16 11:35 Eos # 0.1 K/mm3 (0.0-0.4) 09/22/16 11:35 Baso # 0.0 K/mm3 (0.0-0.1) 09/22/16 11:35 Seg Neutrophils % 87.8 % (40.0-70.0) H 09/22/16 11:35 Seg Neutrophils # 13.1 K/mm3 (1.8-7.7) H 09/22/16 11:35 PT 15.4 Sec. (12.2-14.9) H 09/20/16 16:11 INR 1.23 (0.87-1.13) H 09/20/16 16:11 APTT 34.1 Sec. (24.2-36.6) 09/20/16 16:11 Sodium 133 mmol/L (137-145) L 09/22/16 09:58 Potassium TNR 09/22/16 09:58 Chloride 92.7 mmol/L (98-107) L 09/22/16 09:58 Carbon Dioxide TNR 09/22/16 09:58 Anion Gap TNR 09/22/16 09:58 BUN 50 mg/dL (9-20) H 09/22/16 09:58 Creatinine TNR 09/22/16 09:58 Estimated GFR 7 ml/min 09/22/16 09:58 BUN/Creatinine Ratio 5.26 % 09/22/16 09:58 Glucose 97 mg/dL (75-100) 09/22/16 09:58 POC Glucose 114 (70-105) H 09/21/16 16:42 Lactic Acid 1.50 mmol/L (0.7-2.0) 09/20/16 16:11 Calcium 8.8 mg/dL (8.4-10.2) 09/22/16 09:58 Total Bilirubin 1.70 mg/dL (0.1-1.2) H 09/20/16 16:11 AST 17 units/L (5-40) 09/20/16 16:11 ALT 11 units/L (7-56) 09/20/16 16:11 Alkaline Phosphatase 60 units/L (35-129) 09/20/16 16:11 Total Creatine Kinase 240 units/L (55-170) H 09/20/16 16:11 Troponin T 0.659 ng/mL (0.00-0.029) H* 09/20/16 16:11 Total Protein 8.0 g/dL (6.3-8.2) 09/20/16 16:11 Albumin 3.6 g/dL (3.9-5) L 09/20/16 16:11 Albumin/Globulin Ratio 0.8 % 09/20/16 16:11 Triglycerides 129 mg/dL (2-149) 09/20/16 16:11 Cholesterol 113 mg/dL (50-199) 09/20/16 16:11 LDL Cholesterol Direct 71 mg/dL (50-130) 09/20/16 16:11 HDL Cholesterol 17 mg/dL (40-59) L 09/20/16 16:11 Cholesterol/HDL Ratio 6.64 % 09/20/16 16:11
[2016-09-22] MEDS: AUGMENTIN 500 MG PO SCH (19:09)
[2016-09-22 20:00] LABS: BUN/Creatinine Ratio 4.25; Calcium 9.4 mg/dL (8.4-10.2); Chloride 96.5 mmol/L (98-107); Potassium 3.7 mmol/L (3.6-5.0)
[2016-09-22] MEDS ORDERED: LEVAQUIN 500MG/100ML 500 MG/100 ML BAG IV SCH (22:00)
[2016-09-22] MEDS ORDERED: AUGMENTIN 875 MG PO SCH (22:00)
--- NOTE | 2016-09-23 10:22 | Discharge Summary ---
Providers - Providers Date of Admission: 09/20/16 18:21 Date of discharge: 09/23/16 Attending physician: RENETTA GUADARRAMA 09/20/16 21:28 Consult to Physician [CONS] Routine Consulting Provider: RACHEL NIEVES Reason For Exam: ESRd Place consult to:: RENAL Notified:: OFFICE Phone number called:: [phone] Primary care physician: BATCHMAKER Hospitalization Reason for admission: altered level of consciousness/fever Pertinent studies: CT head without contrast; chronic small vessel white matter ischemic changes, moderate parenchymal volume loss Chest x-ray; cardiomegaly, no definite acute changes Hospital course: Final diagnosis; Febrile illness Dental infection Hyponatremia, corrected End-stage renal disease on hemodialysis Leukocytosis, improved Hypertension Ongoing tobacco use Brief history and hospital course; 56-year-old -Serbian male. Patient with significant past medical history of end-stage renal disease on hemodialysis, hypertension, osteoarthritis , gastroesophageal reflux disease, was admitted through emergency room with altered level of consciousness and low-grade fever Patient was initially evaluated, noted to have slight jaw swelling with the tooth infection Patient was managed with empiric antibiotics, evaluated by nephrology, received hemodialysis per schedule Patient also had blood cultures which were negative to date, responded significantly with Augmentin. Tooth pain and swelling significantly improved Smoking cessation counseling done. Patient strongly advised to quit tobacco use. Verbalized understanding Today's comfortably in bed, alert, awake, oriented 3, not in acute distress Vital signs stable, [id number] evaluation. Physical examination done by me prior to discharge. He is unremarkable as detailed below Patient advised to see dentist ABBY for further evaluation of his tooth infection Patient also advised to follow nephrology and hemodialysis per schedule At the time of discharge, patient is hemodynamically and clinically stable Disposition: DC-01 TO HOME OR SELFCARE Time spent for discharge: 32 min Core Measure Documentation - Palliative Care Palliative Care/ Comfort Measures: Not Applicable - Core Measures Any of the following diagnoses?: none Exam - Constitutional Vitals: Temp Pulse Resp BP Pulse Ox 98.5 F 56 L 20 101/55 97 09/23/16 07:31 09/23/16 07:31 09/23/16 07:31 09/23/16 07:31 09/23/16 07:31 General appearance: Present: no acute distress, well-nourished - EENT Eyes: Present: PERRL, EOM intact - Neck Neck: Present: supple, normal ROM - Respiratory Respiratory effort: normal Respiratory: bilateral: diminished, negative: rales, rhonchi, wheezing - Cardiovascular Rhythm: regular Heart Sounds: Present: S1 & S2 - Extremities Extremities: no ischemia, pulses intact, pulses symmetrical Peripheral Pulses: within normal limits - Abdominal General gastrointestinal: Present: soft, non-tender, non-distended, normal bowel sounds Plan Activity: no restrictions Diet: renal Special Instructions: smoking cessation Additional Instructions: Follow renal/hemodialysis per schedule. Advised to see a dentist for further evaluation of tooth infection Follow up with: PRIMARY MD RENETTA [Primary Care Provider] - 3-5 Days ERIKA MUNROE MD [Staff Physician] - 7 Days Prescriptions: Amoxicillin/K Clav Tab [Augmentin 500 MG TAB] 1 each PO Q24HR #10 tablet
[2016-09-23 12:30] LABS: Hematocrit 31.4 % (35.5-45.6); Hemoglobin 10.5 gm/dl (11.8-15.2); Mean Corpuscular HGB Conc 34 % (32-34); Mean Corpuscular Hemoglobin 31 pg (28-32); Mean Corpuscular Volume 92 fl (84-94); Platelet Count 176 K/mm3 (140-440); Red Blood Count 3.43 M/mm3 (3.65-5.03); Red Cell Distribution Width 17.3 % (13.2-15.2); White Blood Count 9.4 K/mm3 (4.5-11.0)
[2016-09-23 12:45] LABS: BUN/Creatinine Ratio 4.61; Calcium 9.2 mg/dL (8.4-10.2); Chloride 95.8 mmol/L (98-107); Potassium 4.2 mmol/L (3.6-5.0)
--- NOTE | 2016-09-23 13:17 | Progress Note ---
Assessment and Plan Impression: * ESRD * Dental pain * fever/chills * HTN Plan * HD q TTHSAT * iv abx per primary team * strict i/os * dialysis diet * uf as tolerated with HD * epogen per protocol * reportedly 1/2 post blood cultures for gram neg rods as outpatient, blood cultures negative to day as in patient, on abx * follow up with dentist needed, on po augmentin Subjective Date of service: 09/23/16 Principal diagnosis: esrd Interval history: resting well in bed today Objective - Exam Narrative Exam: General appearance: Present: no acute distress, well-nourished - EENT Eyes: Present: PERRL ENT: hearing intact, clear oral mucosa - Neck Neck: Present: supple, normal ROM - Respiratory Respiratory effort: normal Respiratory: bilateral: CTA - Cardiovascular Heart Sounds: Present: S1 & S2. Absent: rub, click - Extremities Extremities: pulses symmetrical, No edema Peripheral Pulses: within normal limits - Abdominal General gastrointestinal: Present: soft, non-tender, non-distended, normal bowel sounds Male genitourinary: Present: normal - Integumentary Integumentary: Present: clear, warm, dry - Musculoskeletal Musculoskeletal: gait normal, strength equal bilaterally - Psychiatric Psychiatric: appropriate mood/affect, intact judgment & insight - Neurologic Neurologic: CNII-XII intact, moves all extremities - Vital Signs Vital signs: Vital Signs - 12hr 09/23/16 09/23/16 09/23/16 05:12 05:24 07:31 Temperature 98.6 F 98.5 F Pulse Rate [ 76 56 L Left] Respiratory 18 20 Rate Blood Pressure 104/64 101/55 [Left Arm] O2 Sat by Pulse 96 98 97 Oximetry - Lab 09/23/16 12:00 09/23/16 12:00 Most recent lab results Calcium 9.2 mg/dL (8.4-10.2) 09/23/16 12:00
[2016-09-23] MEDS: PROCARDIA XL PO SCH ×2 (13:21→13:23)
[2016-09-23] MEDS: COREG PO SCH (13:21)
[2016-09-23 13:22] VITALS: BP 103/52
[2016-09-23] MEDS: PROTONIX PO SCH (13:23)
[2016-09-23] MEDS: AUGMENTIN 500 MG PO SCH (13:23)
[2016-09-23] MEDS: SENSIPAR PO SCH (13:23)
[2016-09-23] MEDS: HEPARIN SUB-Q SCH (13:24)
[2016-09-23 13:25] LABS: Anisocytosis 1+; Blastocytes % (Manual) 0 %
[2016-09-23 13:26] LABS: Diff Status Complete; Macrocytosis 1+; Platelet Estimate Consistent w Auto
== END 2016-09-23 16:49 | disposition home or self-care (01) | DRG 871 ==
LOC: ED 15:00 → 4A 18:21
PROVIDERS: ADMIT Internal Medicine; ATTEND Internal Medicine
PROC: 5A1D00Z (ICD-10-PCS; principal; 2016-09-21)
DX: A41.9 Sepsis, unspecified organism (principal); N18.6 End stage renal disease; I12.0 Hypertensive chronic kidney disease with stage 5 chronic kidney disease or end stage renal disease; E87.1 Hypo-osmolality and hyponatremia; N40.0 Benign prostatic hyperplasia without lower urinary tract symptoms; K21.9 Gastro-esophageal reflux disease without esophagitis; E11.22 Type 2 diabetes mellitus with diabetic chronic kidney disease; M19.90 Unspecified osteoarthritis, unspecified site; K04.7 Periapical abscess without sinus; F17.210 Nicotine dependence, cigarettes, uncomplicated; Z91.013 Allergy to seafood; Z79.899 Other long term (current) drug therapy; Z99.2 Dependence on renal dialysis; Z82.49 Family history of ischemic heart disease and other diseases of the circulatory system; Z71.6 Tobacco abuse counseling
CPT/HCPCS: 36415; 70450; 71010; 80048; 80053; 80061; 82140; 82550; 82962; 84484; 85007; 85025; 85610; 85730; 87040; 93005; 93010; 94760; 96365; 96366; 99285; 99406; J0295; J0360; J0885; J1644; J1956; J7030

== ENCOUNTER 2016-11-27 12:32 | Emergency (ER) | payer MEDICARE ==
--- NOTE | 2016-11-27 14:54 | Emergency Department Report ---
Chief Complaint: Weakness Stated Complaint: WEAKNESS/DIARRHEA Time Seen by Provider: 11/27/16 14:53 - HPI History of Present Illness: Patient care with family member will report patient and was sent from dialysis today by Dr. Hearn with his mold stamper to be checked and for possible admission due to ongoing weakness and diarrhea. Patient is on dialysis Saturday and Saturday and he has dialysis today which he said he completed. Pt has a history of congestive heart failure with some shortness of breath. He denies any chest pain. Patient reports that every time he eats he has diarrhea so he has not eaten today. Patient said he is not on any medication for his diabetes at present. Patient has a fistula to his right arm. Patient was admitted to this hospital in October and family member said that patient signed out AMA. She said that patient had a blood infection at the time of admission but he did not complete his antibiotic. Patient denies any nausea or vomiting. Blood glucose POC is at 129 - ROS Review of Systems: All systems are negative unless stated in HPI above - Exam Vital Signs: Vital Signs 11/27/16 14:01 Temperature 98.4 F Pulse Rate 67 Respiratory 16 Rate Blood Pressure 135/76 O2 Sat by Pulse 96 Oximetry Physical Exam: Gen.: Patient is in a wheelchair because he said he is weak. Patient is well- nourished and well-developed nontoxic in appearance. Cardiovascular: Regular rate and rhythm, S1-S2. Capillary refill less than 3 seconds. Extremity: No clubbing, cyanosis or edema +2 pulses in all extremities. And has right arm fistula with good thrill. MSE screening note: Focused history and physical exam performed. Due to findings the following was ordered:See MDM ED Medical Decision Making - Medical Decision Making MDM: Patient screened by provider in triage area. Appropriate protocol initiated and patient to be seen in main ED by Provider ED Disposition for MSE Condition: Stable
[2016-11-27 15:59] LABS: Basophils % (Auto) 1.3 % (0.0-1.8); Eosinophils % (Auto) 9.6 % (0.0-4.3); Hematocrit 38.5 % (35.5-45.6); Hemoglobin 12.7 gm/dl (11.8-15.2); Mean Corpuscular HGB Conc 33 % (32-34); Mean Corpuscular Hemoglobin 31 pg (28-32); Mean Corpuscular Volume 95 fl (84-94); Platelet Count 142 K/mm3 (140-440); Red Blood Count 4.06 M/mm3 (3.65-5.03); Red Cell Distribution Width 17.6 % (13.2-15.2); White Blood Count 5.6 K/mm3 (4.5-11.0)
[2016-11-27 16:09] LABS: INR 0.97 (0.87-1.13)
[2016-11-27 16:32] LABS: Magnesium 2.3 mg/dL (1.7-2.3)
[2016-11-27 17:15] LABS: BUN/Creatinine Ratio 4.21; Calcium 9.6 mg/dL (8.4-10.2); Potassium 4.7 mmol/L (3.6-5.0)
--- NOTE | 2016-11-27 20:40 | Emergency Department Report ---
ED General Adult HPI - General Chief complaint: Weakness Stated complaint: WEAKNESS/DIARRHEA Time Seen by Provider: 11/27/16 14:53 Source: patient, family, RN notes reviewed Mode of arrival: Wheelchair Limitations: No Limitations - History of Present Illness Initial comments: This is a 56-year-old male, the patient is previously unknown to this provider. Has a past medical history of hypertension, end-stage renal disease on dialysis, arthritis, GERD/reflux. Patient was sent to the ER for evaluation of diarrhea. Me, the patient indicates one bowel movement in the past 24 hours, nonbloody, nonbilious. His family indicates that he is not telling the truth, and that he has had 3-4 bowel movements in the past 24 hours. They also indicate that he accidentally soils himself secondary to inability to get to the bathroom on time. The patient denies headache, neck pain, chest pain, abdominal pain or shortness of breath. Contrary to what is documented, the patient was discharged over the summer for dental infection, was given prescription for antibiotic, and as per family, did not feel this antibiotic prescription. The patient indicates no exacerbating or relieving factors. To me he denies chest pain, he does admit to chronic shortness of breath, which is not new, worsening or different. -: Gradual Consistency: other (as per history of present illness) Improves with: other (as per history of present illness) Worsens with: other (as per history of present illness) Associated Symptoms: other (complains of diarrhea) - Related Data Home Medications Medication Instructions Recorded Confirmed Last Taken Carvedilol 25 mg PO BID 05/06/13 09/20/16 03/17/15 25mg Cinacalcet [Sensipar] 30 mg PO QDAY 05/06/13 09/20/16 03/17/15 30mg NIFEdipine [Nifedipine ER] 60 mg PO BID 05/06/13 09/20/16 03/17/15 60mg Omeprazole 40 mg PO QDAY 05/06/13 09/20/16 03/17/15 40mg Cyanocobalamin (Vitamin B-12) 2,000 mcg PO BID 07/15/13 09/20/16 03/17/15 [Vitamin B-12] 2000mcg Previous Rx's Medication Instructions Recorded Last Taken Type Amoxicillin/K Clav Tab [Augmentin 1 each PO Q24HR #10 tablet 09/23/16 Unknown Rx 500 MG TAB] Chlorhexidine Mouthwash [Peridex] 15 ml MM BID #1 bottle 11/27/16 Unknown Rx Allergies Allergy/AdvReac Type Severity Reaction Status Date / Time shellfish derived Allergy Swelling Verified 11/19/15 11:13 ED Review of Systems ROS: Stated complaint: WEAKNESS/DIARRHEA Other details as noted in HPI Constitutional: see HPI. denies: fever Eyes: as per HPI. denies: eye discharge ENT: as per HPI. denies: throat pain Respiratory: see HPI. denies: cough Cardiovascular: as per HPI. denies: chest pain Gastrointestinal: denies: abdominal pain Genitourinary: as per HPI Musculoskeletal: arthralgia Skin: denies: lesions Neurological: weakness Psychiatric: as per HPI ED Past Medical Hx - Past Medical History Hx Hypertension: Yes Hx Diabetes: Yes Hx GERD: Yes Hx Renal Disease: Yes (ESRD on HD) Hx Arthritis: Yes Hx Asthma: No - Surgical History Past Surgical History?: Yes Additional Surgical History: grafts BUE, bleeding ulcers - Social History Smoking Status: Current Every Day Smoker Substance Use Type: None - Medications Home Medications: Home Medications Medication Instructions Recorded Confirmed Last Taken Type Carvedilol 25 mg PO BID 05/06/13 09/20/16 03/17/15 History 25mg Cinacalcet [Sensipar] 30 mg PO QDAY 05/06/13 09/20/16 03/17/15 History 30mg NIFEdipine [Nifedipine ER] 60 mg PO BID 05/06/13 09/20/16 03/17/15 History 60mg Omeprazole 40 mg PO QDAY 05/06/13 09/20/16 03/17/15 History 40mg Cyanocobalamin (Vitamin B-12) 2,000 mcg PO BID 07/15/13 09/20/16 03/17/15 History [Vitamin B-12] 2000mcg Amoxicillin/K Clav Tab [Augmentin 1 each PO Q24HR #10 tablet 09/23/16 Unknown Rx 500 MG TAB] Chlorhexidine Mouthwash [Peridex] 15 ml MM BID #1 bottle 11/27/16 Unknown Rx ED Physical Exam - General Limitations: No Limitations General appearance: alert, in no apparent distress - Head Head exam: Present: atraumatic, normocephalic - Eye Eye exam: Present: normal appearance, EOMI. Absent: nystagmus - ENT ENT exam: Present: normal exam (there no stridor or dysphonia. There is no trismus or malocclusion.), mucous membranes moist, other (patient has poor dentition with numerous dental caries.) - Neck Neck exam: Present: normal inspection, full ROM - Respiratory Respiratory exam: Present: normal lung sounds bilaterally. Absent: respiratory distress, wheezes, rales, rhonchi, stridor, chest wall tenderness, accessory muscle use, decreased breath sounds, prolonged expiratory - Cardiovascular Cardiovascular Exam: Present: regular rate, normal rhythm, normal heart sounds. Absent: bradycardia, tachycardia, irregular rhythm, systolic murmur, diastolic murmur, rubs, gallop - GI/Abdominal GI/Abdominal exam: Present: soft, normal bowel sounds. Absent: distended, tenderness, guarding, rebound, rigid, pulsatile mass - Rectal Rectal exam: Present: deferred - Extremities Exam Extremities exam: Present: normal inspection, normal capillary refill, other ( there is a right upper extremity AV fistula with no redness, pus or streaking. The compartments are soft. There is no palpable cord. There is no right knee instability. Patient walks with a cane.). Absent: pedal edema, joint swelling , calf tenderness - Back Exam Back exam: Present: normal inspection, full ROM. Absent: tenderness, CVA tenderness (R), CVA tenderness (L), muscle spasm, paraspinal tenderness, vertebral tenderness - Neurological Exam Neurological exam: Present: alert (patient is alert to name, month, location.), oriented X3, normal gait, other (Extraocular movements intact. Tongue midline. No facial droop. Facial sensation intact to light touch in the V1, V2, V3 distribution bilaterally. 5 and 5 strength in 4 extremities.. Sensation is intact to light touch in 4 extremities.). Absent: motor sensory deficit - Psychiatric Psychiatric exam: Present: normal affect, normal mood - Skin Skin exam: Present: warm, dry, intact, normal color. Absent: rash ED Course Vital Signs 11/27/16 11/27/16 11/27/16 14:01 20:45 21:50 Temperature 98.4 F Pulse Rate 67 67 Respiratory 16 22 18 Rate Blood Pressure 135/76 Blood Pressure 178/68 [Left] O2 Sat by Pulse 96 100 100 Oximetry ED Medical Decision Making - Lab Data Result diagrams: 11/27/16 15:34 11/27/16 16:43 Vital Signs 11/27/16 11/27/16 14:01 20:45 Temperature 98.4 F Pulse Rate 67 67 Respiratory 16 22 Rate Blood Pressure 135/76 Blood Pressure 178/68 [Left] O2 Sat by Pulse 96 100 Oximetry Lab Results 11/27/16 11/27/16 11/27/16 Range/Units 15:26 15:34 15:34 WBC 5.6 (4.5-11.0) K/mm3 RBC 4.06 (3.65-5.03) M/mm3 Hgb 12.7 (11.8-15.2) gm/dl Hct 38.5 (35.5-45.6) % MCV 95 H (84-94) fl MCH 31 (28-32) pg MCHC 33 (32-34) % RDW 17.6 H (13.2-15.2) % Plt Count 142 (140-440) K/mm3 Lymph % (Auto) 16.1 (13.4-35.0) % [place] % (Auto) 8.0 H (0.0-7.3) % Eos % (Auto) 9.6 H (0.0-4.3) % Baso % (Auto) 1.3 (0.0-1.8) % Lymph # 0.9 L (1.2-5.4) K/mm3 [place] # 0.5 (0.0-0.8) K/mm3 Eos # 0.5 H (0.0-0.4) K/mm3 Baso # 0.1 (0.0-0.1) K/mm3 Seg Neutrophils % 65.0 (40.0-70.0) % Seg Neutrophils # 3.7 (1.8-7.7) K/mm3 PT 13.4 (12.2-14.9) Sec. INR 0.97 (0.87-1.13) Sodium (137-145) mmol/L Potassium (3.6-5.0) mmol/L Chloride (98-107) mmol/L Carbon Dioxide (22-30) mmol/L Anion Gap mmol/L BUN (9-20) mg/dL Creatinine (0.8-1.5) mg/dL Estimated GFR ml/min BUN/Creatinine Ratio % Glucose (75-100) mg/dL POC Glucose 129 H (70-105) Calcium (8.4-10.2) mg/dL Magnesium (1.7-2.3) mg/dL Troponin T (0.00-0.029) ng/mL NT-Pro-B Natriuret Pep (0-900) pg/mL Triglycerides (2-149) mg/dL Cholesterol (50-199) mg/dL LDL Cholesterol Direct (50-130) mg/dL HDL Cholesterol (40-59) mg/dL Cholesterol/HDL Ratio % TSH (0.270-4.200) mlU/mL 11/27/16 11/27/16 11/27/16 Range/Units 15:34 15:44 15:45 WBC (4.5-11.0) K/mm3 RBC (3.65-5.03) M/mm3 Hgb (11.8-15.2) gm/dl Hct (35.5-45.6) % MCV (84-94) fl MCH (28-32) pg MCHC (32-34) % RDW (13.2-15.2) % Plt Count (140-440) K/mm3 Lymph % (Auto) (13.4-35.0) % [place] % (Auto) (0.0-7.3) % Eos % (Auto) (0.0-4.3) % Baso % (Auto) (0.0-1.8) % Lymph # (1.2-5.4) K/mm3 [place] # (0.0-0.8) K/mm3 Eos # (0.0-0.4) K/mm3 Baso # (0.0-0.1) K/mm3 Seg Neutrophils % (40.0-70.0) % Seg Neutrophils # (1.8-7.7) K/mm3 PT (12.2-14.9) Sec. INR (0.87-1.13) Sodium (137-145) mmol/L Potassium (3.6-5.0) mmol/L Chloride (98-107) mmol/L Carbon Dioxide (22-30) mmol/L Anion Gap mmol/L BUN (9-20) mg/dL Creatinine (0.8-1.5) mg/dL Estimated GFR ml/min BUN/Creatinine Ratio % Glucose (75-100) mg/dL POC Glucose (70-105) Calcium (8.4-10.2) mg/dL Magnesium 2.30 (1.7-2.3) mg/dL Troponin T 0.219 H* (0.00-0.029) ng/mL NT-Pro-B Natriuret Pep > 26967 H (0-900) pg/mL Triglycerides 168 H (2-149) mg/dL Cholesterol 198 (50-199) mg/dL LDL Cholesterol Direct 135 H (50-130) mg/dL HDL Cholesterol 30 L (40-59) mg/dL Cholesterol/HDL Ratio 6.60 % TSH 2.840 (0.270-4.200) mlU/mL 11/27/16 Range/Units 16:43 WBC (4.5-11.0) K/mm3 RBC (3.65-5.03) M/mm3 Hgb (11.8-15.2) gm/dl Hct (35.5-45.6) % MCV (84-94) fl MCH (28-32) pg MCHC (32-34) % RDW (13.2-15.2) % Plt Count (140-440) K/mm3 Lymph % (Auto) (13.4-35.0) % [place] % (Auto) (0.0-7.3) % Eos % (Auto) (0.0-4.3) % Baso % (Auto) (0.0-1.8) % Lymph # (1.2-5.4) K/mm3 [place] # (0.0-0.8) K/mm3 Eos # (0.0-0.4) K/mm3 Baso # (0.0-0.1) K/mm3 Seg Neutrophils % (40.0-70.0) % Seg Neutrophils # (1.8-7.7) K/mm3 PT (12.2-14.9) Sec. INR (0.87-1.13) Sodium 141 (137-145) mmol/L Potassium 4.7 (3.6-5.0) mmol/L Chloride 95.0 L (98-107) mmol/L Carbon Dioxide 31 H (22-30) mmol/L Anion Gap 20 mmol/L BUN 27 H (9-20) mg/dL Creatinine 6.4 H (0.8-1.5) mg/dL Estimated GFR 11 ml/min BUN/Creatinine Ratio 4.21 % Glucose 98 (75-100) mg/dL POC Glucose (70-105) Calcium 9.6 (8.4-10.2) mg/dL Magnesium (1.7-2.3) mg/dL Troponin T (0.00-0.029) ng/mL NT-Pro-B Natriuret Pep (0-900) pg/mL Triglycerides (2-149) mg/dL Cholesterol (50-199) mg/dL LDL Cholesterol Direct (50-130) mg/dL HDL Cholesterol (40-59) mg/dL Cholesterol/HDL Ratio % TSH (0.270-4.200) mlU/mL - EKG Data -: EKG Interpreted by Me - EKG Data 11/27/16 21:20 Normal sinus, left axis deviation, left ventricular voltage, abnormal EKG, not morphologically consistent with stemi, unchanged from prior - Radiology Data Radiology results: image reviewed interpreted by me: X-ray of the chest is negative - Medical Decision Making Differential diagnosis: Chronic dental caries, chronic renal insufficiency, history of diarrhea Assessment and plan: 56-year-old male who has a complaint of generalized weakness and diarrhea, although he endorses that he is only having 1 bowel movement per day. The patient is afebrile, vital signs The patient walks with a cane, and has an unremarkable physical exam. He has a GCS of 15, with an NIH score of 0, laboratory studies are unremarkable with chronic renal insufficiency. Elevated troponin is appreciated, this is since prior to my evaluation, however the patient has no immediate cardiac complaints , and his troponin was more elevated on previous evaluation. Based on his history, physical exam and laboratory studies, I have no suspicion for bacteremia, blood cultures were sent prior to my evaluation, but I am not concerned about bacterial infection given the aforementioned. I have also discussed this case with the covering hydrogeologist, Dr. Vasquez. The patient was strongly encouraged to follow up with his outpatient primary care doctor and dentist, he will be discharged with chlorhexidine, he does have some chronic poorly managed primary care issues, but at this point time, there is no objective indication that the patient requires admission to the hospital. 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 Given lack of fever, leukocytosis, tachycardia, frequency of bowel movement, I think antibiotic associated diarrhea or healthcare associated diarrhea is very unlikely. Critical care attestation.: If time is entered above; I have spent that time in minutes in the direct care of this critically ill patient, excluding procedure time. ED Disposition Clinical Impression: Dental caries, HTN (hypertension), ESRD (end stage renal disease) on dialysis Disposition: TO HOME OR SELFCARE Is pt being admited?: No Does the pt Need Aspirin: No Condition: Stable Instructions: Hypertension (ED) Additional Instructions: Continue current outpatient medications. Follow up with a primary care doctor within the next 7-10 days. Please note that blood pressure is elevated, and this should be followed up by your primary care doctor. Long-term complications of hypertension and elevated blood pressure include stroke, heart attack, disability, , paralysis, loss of quality of life. An outpatient physical therapy consult is ordered for you, they will contact you at the listed phone number, please make certain to follow this up for help with ambulation. Follow-up with a dentist within the next 2 weeks. Take the chlorhexidine antibiotic mouthwash as directed, cultures were sent today, results will be available in the next 3-5 days, have a primary care doctor or nephrology specialist contact the medical records department to obtain culture results. Please return to the ER right away with new pain, worse pain, migration of pain , fevers, chills, confusion, intractable nausea or vomiting, inability to tolerate liquid feeds. Prescriptions: Chlorhexidine Mouthwash [Peridex] 15 ml MM BID #1 bottle Referrals: CHARLIE JACKSON MD [Primary Care Provider] - 3-5 Days [facility] [Outside] - 3-5 Days [facility] [Provider Group] - 3-5 Days RACHEL NIEVES MD [Staff Physician] - 3-5 Days
[2016-11-27 20:46] VITALS: BP 178/68
--- NOTE | 2016-11-28 07:36 | XRay Report ---
CHEST XRAY, 2 VIEWS: History: Weakness. Findings: There is mild cardiomegaly. Pulmonary vessels are within normal limits. The lungs are clear and fully expanded. No infiltrate, pleural effusion or pneumothorax. Normal thoracic cage. IMPRESSION: Cardiomegaly. No overwhelming change since 09/20/16.
== END 2016-11-27 21:57 | disposition home or self-care (01) ==
LOC: ED 12:32
DX: E11.22 Type 2 diabetes mellitus with diabetic chronic kidney disease (principal); I12.0 Hypertensive chronic kidney disease with stage 5 chronic kidney disease or end stage renal disease; N18.6 End stage renal disease; K02.9 Dental caries, unspecified; M19.90 Unspecified osteoarthritis, unspecified site; F17.200 Nicotine dependence, unspecified, uncomplicated; Z91.013 Allergy to seafood
CPT/HCPCS: 36415; 71020; 80048; 80061; 82330; 82962; 83735; 83880; 84443; 84484; 85025; 85610; 87040; 93005; 93010